=== PATIENT | female | born 1950 | race Hispanic/Latino ===

== ENCOUNTER 2017-08-25 07:13 | Day surgery (SDC) | payer MEDICARE ==
[2017-08-18 10:12] VITALS: BMI 25.0
[2017-08-25] MEDS ORDERED: Lidocaine 1% Inj (20ml) ONE (08:38)
[2017-08-25] MEDS ORDERED: Propofol 10 mg/ml Inj (20 ML) ONE (08:38)
[2017-08-25] MEDS ORDERED: Sodium Chloride 0.9% 1,000 ML IV SCH (10:00)
[2017-08-25 10:14] VITALS: O2SAT 98
[2017-08-25 11:18] VITALS: BP 128/87; PULSE 65; RESP 16; TEMP 97.9
== END 2017-08-25 11:01 | disposition home or self-care (01) ==
LOC: ENDO 07:13
PROVIDERS: ATTEND Internal Medicine Gastroenterology
DX: K21.0 Gastro-esophageal reflux disease with esophagitis (principal); K44.9 Diaphragmatic hernia without obstruction or gangrene; K29.80 Duodenitis without bleeding; K29.50 Unspecified chronic gastritis without bleeding; E11.9 Type 2 diabetes mellitus without complications; E78.5 Hyperlipidemia, unspecified; I10 Essential (primary) hypertension
CPT/HCPCS: 43239; 88305; 88312; 88342; J2405; J2704; J7040 ×2

== ENCOUNTER 2018-05-07 08:04 | Day surgery (SDC) | payer MEDICARE ==
[2017-08-18 10:12] VITALS: BMI 25.0
[2018-05-07] MEDS ORDERED: Sodium Chloride 0.9% 1,000 ML IV SCH (09:15)
[2018-05-07] MEDS ORDERED: Propofol 10 mg/ml Inj (20 ML) ONE (09:32)
[2018-05-07 11:11] VITALS: TEMP 97.6
[2018-05-07 11:20] VITALS: O2SAT 99
[2018-05-07 11:28] VITALS: BP 120/63; PULSE 68; RESP 15
== END 2018-05-07 12:50 | disposition home or self-care (01) ==
LOC: ENDO 08:04
PROVIDERS: ATTEND Internal Medicine Gastroenterology
DX: K52.9 Noninfective gastroenteritis and colitis, unspecified (principal); K57.30 Diverticulosis of large intestine without perforation or abscess without bleeding; K64.8 Other hemorrhoids; E11.9 Type 2 diabetes mellitus without complications; I10 Essential (primary) hypertension; H40.9 Unspecified glaucoma; M81.0 Age-related osteoporosis without current pathological fracture; R16.0 Hepatomegaly, not elsewhere classified; K44.9 Diaphragmatic hernia without obstruction or gangrene; K21.0 Gastro-esophageal reflux disease with esophagitis; K29.80 Duodenitis without bleeding

== ENCOUNTER 2018-10-30 14:37 | Outpatient (CLI) | payer MEDICARE | END 2018-10-30 14:38 | disposition home or self-care (01) | LOC: RAD 14:37 ==